=== PATIENT | female | born 1975 | race Caucasian/White ===

== ENCOUNTER → 2023-04-09 08:28 | Outpatient (REF) | payer BC, SELFPAY ==
[2023-04-09 12:48] LABS: % Basophils 0.8 % (0-2); % Immature Granulocytes 0.2 % (0-0.5); % Lymphocytes 24.6 % (20.5-51.1); % Monocytes 9.2 % (1.7-9.3); % Neutrophils 63.2 % (42.2-75.2); Absolute Basophils 0.1 10^3/uL (0-0.2); Absolute Eosinophils 0.1 10^3/uL (0-0.7); Absolute Lymphocytes 1.5 10^3/uL (1.2-3.4); Absolute Monocytes 0.6 10^3/uL (0.1-0.6); Absolute Neutrophils 3.8 10^3/uL (1.4-6.5); Hematocrit 39.8 % (37.0-47.0); Mean Corp Hgb Conc. 32.7 g/dL (33.0-37.0); Mean Corpuscular Hgb 28.5 pg (27.0-31.0); Mean Corpuscular Volume 87.3 fL (81.0-99.0); Mean Platelet Volume 11.8 fL (7.4-10.4); Nucleated Red Blood Cells % 0 %; Platelet Count 267 10^3/uL (130-400); Red Blood Cell Count 4.56 10^6/uL (4.20-5.40); Red Cell Dist. Width 14.4 % (11.5-14.5)
[2023-04-09 13:05] LABS: PT 13.2 Sec (11.4-14.6)
[2023-04-09 13:07] LABS: APTT 29.2 Sec (23.4-35.0)
[2023-04-09 13:30] LABS: Beta HCG Quantitative < 2.39 mIU/ml; Luteinizing Hormone 4.69 mIU/ml; Prolactin 12.8 ng/ml (3.0-18.6)
[2023-04-09 13:44] LABS: TSH Reflex To Free T4 1.18 uIU/ml (0.47-4.68)
[2023-04-09 13:45] LABS: Estradiol 23.8 pg/ml
== END ==
LOC: HWRAD 08:28
PROVIDERS: ATTENDING PHYSICIAN Nurse Practitioner Family; FAMILY PHYSICIAN Nurse Practitioner Adult Health
DX: N92.1 Excessive and frequent menstruation with irregular cycle (principal)
CPT/HCPCS: 36415; 76830; 76856; 82670; 83001; 83002; 84146; 84443; 84702; 85025; 85610; 85730

== ENCOUNTER → 2023-06-10 06:25 | Day surgery (SDC) | payer BC, SELFPAY ==
[2023-06-10] VITALS (10 sets, daily range): BP systolic 114–143; BP diastolic 68–92; BMI 28.6
[2023-06-10 09:50] LABS: HCG, Urine Qualitative Screen Negative
[2023-06-10] MEDS: NORMOSOL-R 1000 IV (09:56)
[2023-06-10] MEDS: DILAUDID 0.25 MG IV (12:00)
== END ==
LOC: SDS 06:25
PROVIDERS: ATTENDING PHYSICIAN Obstetrics & Gynecology
DX: N93.9 Abnormal uterine and vaginal bleeding, unspecified (principal); Z30.430 Encounter for insertion of intrauterine contraceptive device
CPT/HCPCS: 58555; 58300; 88305; 81025